=== PATIENT | male | born 2005 | race Caucasian/White ===

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

== ENCOUNTER 2023-04-13 10:25 | Inpatient (IN) ==
[2023-04-13 13:29] LABS: Urine Appearance Cloudy; Urine Bilirubin Negative (Negative); Urine Blood Negative (Negative); Urine Color Amber; Urine Glucose Negative (Negative); Urine Ketones Negative (Negative); Urine Nitrite Negative (Negative); Urine Protein Negative (Negative); Urine Specific Gravity 1.026 (1.002-1.030); Urine Urobilinogen Negative (Negative)
[2023-04-13 13:33] LABS: Hemoglobin 7.5 g/dL (13.2-16.3); Mean Corpuscular Hemoglobin 20.8 pg (27-33); Mean Corpuscular Hgb Conc 31.2 g/dL (31-36); Mean Corpuscular Volume 66.6 fL (80-97); Mean Platelet Volume 7.2 fL (7.5-11.2); Platelet Count 138 10^3/uL (150-450); Red Blood Count 3.61 10^6/uL (4.06-5.63); Red Cell Distribution Width 14.7 % (12-17); White Blood Count 11.7 10^3/uL (3.6-10.2)
[2023-04-13 14:25] LABS: Albumin 4.1 g/dL (3.2-5.2); Albumin/Globulin Ratio 1.3 (1-3); C Reactive Protein 3.47 mg/L (<8.01); Creatinine, Serum 0.66 mg/dL (0.67-1.17); Globulin 3.1 g/dL (2-4); Potassium 3.8 mmol/L (3.5-5.0); Total Bilirubin 0.4 mg/dL (0.2-1.0); Total Protein 7.2 g/dL (6.4-8.9); eGFR CKD-EPI 137.7 (>60)
[2023-04-13] MEDS ORDERED: Pantoprazole VIAL 40 MG VIAL IV ONE (14:35)
[2023-04-13] MEDS ORDERED: Pantoprazole 80 mg in NS BAG 80 MG/250 ML BAG IV SCH (15:00)
[2023-04-13] MEDS ORDERED: PEG 3000 GI LAVAGE 1 GALLON PO ONE ×2 (15:51→20:00)
[2023-04-13 16:00] LABS: ABS Eosinophils 0.9 10^3/uL (0.0-0.5); ABS Lymphocytes 2.7 10^3/uL (1.0-4.8); ABS Monocytes 0.8 10^3/uL (0.0-1.1); ABS Neutrophils 7.3 10^3/uL (1.5-7.6); ABS Nucleated RBC 0.01 10^3/ul; Hypochromasia 2+; Lymphocyte % 23.4 %; Microcytosis 3+
[2023-04-13 17:26] LABS: INR 1.12 (0.83-1.13)
[2023-04-13 18:06] LABS: % Iron Saturation 5 % (15-55); .Transferrin 316 mg/dL (203-362); Iron < 20 ug/dL (50-212); Total Iron Binding Capacity 442 mcg/dL (250-450); Unsaturated Iron Binding 422 ug/dL
[2023-04-13 18:24] LABS: Ferritin 3.4 ng/mL (24-336)
[2023-04-14 00:50] LABS: Hematocrit 24.4 % (38-53); Hemoglobin 7.7 g/dL (13.2-16.3)
[2023-04-14] MEDS: Pantoprazole 80 mg in NS BAG 80 MG/250 ML BAG IV SCH ×3 (01:24→21:34)
[2023-04-14] MEDS: Ondansetron ODT 4 mg TAB 4 MG TAB SL PRN ×2 (02:38→12:04)
[2023-04-14] MEDS ORDERED: PEG 3000 GI LAVAGE 1 GALLON PO ONE (06:00)
[2023-04-14 06:50] LABS: ABS Eosinophils 0.7 10^3/uL (0.0-0.5); ABS Lymphocytes 2.8 10^3/uL (1.0-4.8); ABS Monocytes 0.9 10^3/uL (0.0-1.1); ABS Neutrophils 8.8 10^3/uL (1.5-7.6); ABS Nucleated RBC 0.01 10^3/ul; Eosinophil % 5.3 %; Hematocrit 22.1 % (38-53); Hemoglobin 6.9 g/dL (13.2-16.3); Lymphocyte % 21.2 %; Mean Corpuscular Hemoglobin 20.3 pg (27-33); Mean Corpuscular Volume 65.7 fL (80-97); Mean Platelet Volume 7.1 fL (7.5-11.2); Nucleated Red Blood Cells % 0.1 %/100WBC (0.0-0.8); Platelet Count 132 10^3/uL (150-450); Red Blood Count 3.37 10^6/uL (4.06-5.63); Red Cell Distribution Width 14.5 % (12-17); White Blood Count 13.2 10^3/uL (3.6-10.2)
[2023-04-14] MEDS ORDERED: Magnesium Sulfate 2 gm BAG 2 GM/50 ML BAG IVPB ONE (07:33)
[2023-04-14] MEDS ORDERED: Iron Sucrose 200 MG in NS 0.9% 100 ml BAG 100 ML IVPB SCH (09:00)
[2023-04-14] MEDS ORDERED: Midazolam 10 mg/10 ml VIAL 1 mg/ml 10 ml VIAL (10 mg) ONE (14:33)
[2023-04-14] MEDS ORDERED: fentaNYL 100 mcg/2 ml 50 MCG/ML VIAL ONE (14:33)
[2023-04-14] MEDS: Ferric Gluconate IV 250 MG in NS 0.9% 250 ml 200 ML IVPB SCH (17:45)
[2023-04-14 18:31] LABS: Hemoglobin 7.9 g/dL (13.2-16.3)
[2023-04-14] MEDS: methylPREDNISolone SOD SUCC 40 mg/ml 1 ml VIAL IV SCH (20:16)
[2023-04-15 00:40] LABS: Hemoglobin 8.6 g/dL (13.2-16.3)
[2023-04-15 02:02] LABS: Hepatitis B Surface Ab Immune (Immune)
[2023-04-15 03:21] LABS: Hepatitis B Surface Antigen Nonreactive (Nonreactive)
[2023-04-15 03:26] LABS: Hepatitis B Core IgM Nonreactive (Nonreactive)
[2023-04-15 06:41] LABS: Calcium 9.3 mg/dL (8.6-10.3); Creatinine, Serum 0.83 mg/dL (0.67-1.17); Hematocrit 27.9 % (38-53); Hemoglobin 8.7 g/dL (13.2-16.3); Magnesium 2.1 mg/dL (1.9-2.7); Mean Corpuscular Hemoglobin 21.1 pg (27-33); Mean Corpuscular Hgb Conc 31.1 g/dL (31-36); Mean Corpuscular Volume 67.8 fL (80-97); Mean Platelet Volume 7.6 fL (7.5-11.2); Platelet Count 168 10^3/uL (150-450); Potassium 4.2 mmol/L (3.5-5.0); Red Blood Count 4.12 10^6/uL (4.06-5.63); Red Cell Distribution Width 15.7 % (12-17); White Blood Count 16.6 10^3/uL (3.6-10.2); eGFR CKD-EPI 128.5 (>60)
[2023-04-15] MEDS: methylPREDNISolone SOD SUCC 40 mg/ml 1 ml VIAL IV SCH (08:31)
[2023-04-15] MEDS: Ferric Gluconate IV 250 MG in NS 0.9% 250 ml 200 ML IVPB SCH (08:31)
[2023-04-15 14:02] LABS: Hemoglobin 7.5 g/dL (13.2-16.3)
[2023-04-16 00:26] LABS: Hematocrit 23.3 % (38-53); Hemoglobin 7.3 g/dL (13.2-16.3)
[2023-04-16 07:18] LABS: Hemoglobin 7.2 g/dL (13.2-16.3); Mean Corpuscular Hemoglobin 21.1 pg (27-33); Mean Corpuscular Hgb Conc 31.2 g/dL (31-36); Mean Corpuscular Volume 67.7 fL (80-97); Mean Platelet Volume 7.5 fL (7.5-11.2); Platelet Count 158 10^3/uL (150-450); Red Cell Distribution Width 15.5 % (12-17); White Blood Count 19.8 10^3/uL (3.6-10.2)
[2023-04-16 07:26] LABS: Calcium 8.8 mg/dL (8.6-10.3); Creatinine, Serum 0.75 mg/dL (0.67-1.17); Magnesium 1.9 mg/dL (1.9-2.7); Potassium 3.8 mmol/L (3.5-5.0); eGFR CKD-EPI 132.5 (>60)
[2023-04-16] MEDS: Ferric Gluconate IV 250 MG in NS 0.9% 250 ml 200 ML IVPB SCH (09:10)
[2023-04-16 11:00] VITALS: BP 113/68
[2023-04-16 13:37] LABS: Hematocrit 25.6 % (38-53); Hemoglobin 7.9 g/dL (13.2-16.3)
[2023-04-16 16:04] LABS: TB1 Ag minus Nil Result -0.03 IU/mL
[2023-04-16 16:08] LABS: QuantiferonTb Gold Plus Result Negative (Negative)
== END 2023-04-16 15:35 | disposition home or self-care (01) | DRG 386 ==
LOC: ED 10:25 → EDHOLD 15:43 → SSU 17:01
PROVIDERS: ADMIT Student in an Organized Health Care Education/Training Program; ATTEND Student in an Organized Health Care Education/Training Program

== ENCOUNTER 2024-03-07 16:44 | Inpatient (IN) ==
[2024-03-07 18:10] LABS: ABS Eosinophils 0.5 10^3/uL (0.0-0.5); ABS Lymphocytes 4.5 10^3/uL (1.0-4.8); ABS Monocytes 1.5 10^3/uL (0.0-1.1); ABS Neutrophils 5.6 10^3/uL (1.5-7.6); Hematocrit 33.6 % (38-53); Hemoglobin 10.6 g/dL (13.2-16.3); Lymphocyte % 37.3 %; Mean Corpuscular Hemoglobin 25.9 pg (27-33); Mean Corpuscular Hgb Conc 31.6 g/dL (31-36); Mean Platelet Volume 7.7 fL (7.5-11.2); Platelet Count 190 10^3/uL (150-450); Red Blood Count 4.09 10^6/uL (4.06-5.63); White Blood Count 12.2 10^3/uL (3.6-10.2)
[2024-03-07 18:11] LABS: Urine Appearance Clear; Urine Bilirubin Negative (Negative); Urine Blood Negative (Negative); Urine Color Yellow; Urine Glucose Negative (Negative); Urine Ketones Trace (Negative); Urine Nitrite Negative (Negative); Urine Protein 1+ (>=30 mg/dL) (Negative); Urine Specific Gravity 1.037 (1.002-1.030); Urine Urobilinogen 1+ (Negative); Urine pH 5.5 (5.0-8.0)
[2024-03-07 18:30] LABS: Urine Bacteria Absent /HPF (Absent); Urine Red Blood Cell 1+(3-5/hpf) /HPF (0-Trace); Urine Sperm Present /HPF (Absent); Urine White Blood Cell Trace(0-5/hpf) /HPF (0-Trace)
[2024-03-07] MEDS: Lactated Ringers 1000 ml BAG IV.FLUID IV ONE (18:41)
[2024-03-07 19:13] LABS: Albumin/Globulin Ratio 1.6 (1-3); C Reactive Protein 16.7 mg/L (<8.01); Calcium 9.3 mg/dL (8.6-10.3); Creatinine, Serum 0.78 mg/dL (0.67-1.17); Globulin 2.5 g/dL (2-4); Potassium 3.5 mmol/L (3.5-5.0); Total Bilirubin 0.3 mg/dL (0.2-1.0); Total Protein 6.5 g/dL (6.4-8.9); eGFR CKD-EPI 130.1 (>60)
[2024-03-07] MEDS ORDERED: Albuterol HFA INHALER 8 gm MDI INH PRN (19:55)
[2024-03-07] MEDS ORDERED: Iohexol 350 (CONTRAST) 500 ML MDV IV ONE (21:04)
[2024-03-07] MEDS: Enoxaparin 40 MG/0.4 ML SYR SUBCUT SCH (21:56)
[2024-03-08 05:49] LABS: ABS Eosinophils 0.5 10^3/uL (0.0-0.5); ABS Lymphocytes 4.4 10^3/uL (1.0-4.8); ABS Monocytes 1.1 10^3/uL (0.0-1.1); ABS Neutrophils 6.5 10^3/uL (1.5-7.6); ABS Nucleated RBC 0.01 10^3/ul; Hematocrit 28.1 % (38-53); Lymphocyte % 35.3 %; Mean Corpuscular Hemoglobin 26.2 pg (27-33); Mean Platelet Volume 7.6 fL (7.5-11.2); Nucleated Red Blood Cells % 0.1 %/100WBC (0.0-0.8); Platelet Count 160 10^3/uL (150-450); Red Blood Count 3.43 10^6/uL (4.06-5.63); Red Cell Distribution Width 21.6 % (12-17); White Blood Count 12.6 10^3/uL (3.6-10.2)
[2024-03-08 06:39] LABS: C Reactive Protein 12.76 mg/L (<8.01); Calcium 8.6 mg/dL (8.6-10.3); Creatinine, Serum 0.64 mg/dL (0.67-1.17); Potassium 3.8 mmol/L (3.5-5.0); eGFR CKD-EPI 138.1 (>60)
[2024-03-08] MEDS: PEG 3000 GI LAVAGE 1 GALLON PO ONE ×2 (08:55)
[2024-03-08] MEDS: Sodium Phosphate ADULT ENEMA 133 ML BTL PR ONE ×3 (08:55→13:58)
[2024-03-08] MEDS: Polyethylene Glycol 3350 BTL 238 GM BTL PO ONE ×2 (09:48→12:11)
[2024-03-08 10:39] LABS: ABS Basophils 0.1 10^3/uL (0.0-0.1); ABS Eosinophils 0.5 10^3/uL (0.0-0.5); ABS Lymphocytes 4.2 10^3/uL (1.0-4.8); ABS Monocytes 1.1 10^3/uL (0.0-1.1); ABS Neutrophils 7.5 10^3/uL (1.5-7.6); ABS Nucleated RBC 0.01 10^3/ul; Eosinophil % 3.8 %; Hemoglobin 9.3 g/dL (13.2-16.3); Lymphocyte % 31.3 %; Mean Corpuscular Hemoglobin 26.2 pg (27-33); Mean Corpuscular Volume 81.9 fL (80-97); Mean Platelet Volume 7.8 fL (7.5-11.2); Nucleated Red Blood Cells % 0.1 %/100WBC (0.0-0.8); Platelet Count 143 10^3/uL (150-450); Red Blood Count 3.54 10^6/uL (4.06-5.63); Red Cell Distribution Width 21.9 % (12-17); White Blood Count 13.3 10^3/uL (3.6-10.2)
[2024-03-08 10:48] LABS: Calcium 8.5 mg/dL (8.6-10.3); Creatinine, Serum 0.64 mg/dL (0.67-1.17); Potassium 3.5 mmol/L (3.5-5.0); eGFR CKD-EPI 138.1 (>60)
[2024-03-08] MEDS: Ondansetron 4 mg VIAL 2 MG/ML 2 ml VIAL IV PRN (12:51)
[2024-03-08] MEDS ORDERED: fentaNYL 100 mcg/2 ml 50 MCG/ML VIAL ONE (14:20)
[2024-03-08] MEDS ORDERED: Midazolam 10 mg/10 ml VIAL 1 mg/ml 10 ml VIAL (10 mg) ONE (14:20)
[2024-03-08] MEDS ORDERED: Acetaminophen IV 1 GM/100ML 1,000 MG/100 ML BAG IV PRN (14:49)
[2024-03-08] MEDS: methylPREDNISolone SOD SUCC 40 mg/ml 1 ml VIAL IV SCH (17:34)
[2024-03-08] MEDS: Iron Sucrose 200 MG in NS 0.9% 100 ml BAG 100 ML IVPB ONE (17:36)
[2024-03-08] MEDS ORDERED: methylPREDNISolone SOD SUCC 40 mg/ml 1 ml VIAL IV SCH (18:00)
[2024-03-08] MEDS ORDERED: Enoxaparin 40 MG/0.4 ML SYR SUBCUT SCH (18:00)
[2024-03-08] MEDS: methylPREDNISolone SOD SUCC 40 mg/ml 1 ml VIAL IV ONE (18:19)
[2024-03-08] MEDS: Enoxaparin 30 MG/0.3 ML SYR SUBCUT SCH (18:23)
[2024-03-09 08:09] LABS: ABS Lymphocytes 3.3 10^3/uL (1.0-4.8); ABS Monocytes 0.6 10^3/uL (0.0-1.1); ABS Neutrophils 12.6 10^3/uL (1.5-7.6); Hematocrit 30.3 % (38-53); Hemoglobin 9.8 g/dL (13.2-16.3); Lymphocyte % 19.8 %; Mean Corpuscular Hemoglobin 26.2 pg (27-33); Mean Corpuscular Hgb Conc 32.4 g/dL (31-36); Mean Platelet Volume 7.8 fL (7.5-11.2); Platelet Count 178 10^3/uL (150-450); Red Blood Count 3.74 10^6/uL (4.06-5.63); Red Cell Distribution Width 21.2 % (12-17); White Blood Count 16.5 10^3/uL (3.6-10.2)
[2024-03-09 08:30] LABS: Albumin 3.7 g/dL (3.2-5.2); Albumin/Globulin Ratio 1.5 (1-3); Calcium 9.3 mg/dL (8.6-10.3); Creatinine, Serum 0.62 mg/dL (0.67-1.17); Globulin 2.4 g/dL (2-4); Magnesium 1.8 mg/dL (1.9-2.7); Potassium 4.2 mmol/L (3.5-5.0); Total Bilirubin 0.3 mg/dL (0.2-1.0); Total Protein 6.1 g/dL (6.4-8.9); eGFR CKD-EPI 139.5 (>60)
[2024-03-09] MEDS: Ferric Gluconate IV 250 MG in NS 0.9% 250 ml 200 ML IVPB SCH (08:43)
[2024-03-09] MEDS: Magnesium Sulf 4 GM/100 ML IV 4,000 MG/100 ML BAG IVPB ONE (11:19)
[2024-03-09 14:09] VITALS: BP 123/65
[2024-03-09 14:33] LABS: Cytomegalovirus IgG Antibody Positive (Negative)
[2024-03-09] MEDS: methylPREDNISolone SOD SUCC 40 mg/ml 1 ml VIAL IV SCH (17:59)
[2024-03-10 14:49] LABS: EBV Capsid Ag IgG Ab Negative (Negative); EBV Capsid Ag IgM Ab Negative (Negative); Epstein-Barr Nuclear Antigen Negative (Negative)
[2024-03-10 21:01] LABS: Adenovirus F40/41 Negative (Negative); Astrovirus Negative (Negative); Cryptosporidium species Negative (Negative); Cyclospora cayetanensis Negative (Negative); Entamoeba histolytica Negative (Negative); Enteroaggregative E.coli(EAEC) Negative (Negative); Enteropathogenic Ecoli(EPEC) Negative (Negative); Enterotoxigenic Ecoli(ETEC) Negative (Negative); Norovirus GI/GII Positive (Negative); Plesiomonas shigelloides Negative (Negative); Salmonella species Negative (Negative); Sapovirus Negative (Negative); Shiga toxin producing E. coli Negative (Negative); Shigella/Enteroinvasive E.coli Negative (Negative); Specimen Source STOOL; Vibrio cholerae Negative (Negative); Yersinia species Negative (Negative)
[2024-03-12 15:52] LABS: Calprotectin >3000 mcg/g
== END 2024-03-09 20:27 | disposition short-term general hospital (02) | DRG 386 ==
LOC: ED 16:44 → EDHOLD 16:44 → SUATTDRO 19:08 → OBSVTOIN 19:08 → MED 03-08 08:50
PROVIDERS: ADMIT Internal Medicine; ATTEND Student in an Organized Health Care Education/Training Program

== ENCOUNTER 2024-03-21 17:30 | Observation (INO) ==
[2024-03-21] MEDS ORDERED: Albuterol HFA INHALER 8 gm MDI INH PRN (21:00)
[2024-03-21 21:24] LABS: Mean Corpuscular Hemoglobin 26.9 pg (27-33); Mean Corpuscular Hgb Conc 32.3 g/dL (31-36); Mean Corpuscular Volume 83.4 fL (80-97); Mean Platelet Volume 6.9 fL (7.5-11.2); Platelet Count 191 10^3/uL (150-450); Red Cell Distribution Width 21.8 % (12-17)
[2024-03-21 21:33] LABS: Albumin 3.1 g/dL (3.2-5.2); Albumin/Globulin Ratio 1.4 (1-3); C Reactive Protein 8.43 mg/L (<8.01); Calcium 8.1 mg/dL (8.6-10.3); Creatinine, Serum 0.85 mg/dL (0.67-1.17); Globulin 2.2 g/dL (2-4); Total Bilirubin 0.2 mg/dL (0.2-1.0); Total Protein 5.3 g/dL (6.4-8.9); eGFR CKD-EPI 126.8 (>60)
[2024-03-21 21:48] LABS: ABS Monocytes 0.9 10^3/uL (0.0-1.1); ABS Neutrophils 10.1 10^3/uL (1.5-7.6); ABS Nucleated RBC 0.02 10^3/ul; Hematocrit 21.4 % (38-53); Hemoglobin 6.9 g/dL (13.2-16.3); Lymphocyte % 15.3 %; Nucleated Red Blood Cells % 0.2 %/100WBC (0.0-0.8); Red Blood Count 2.57 10^6/uL (4.06-5.63)
[2024-03-21 21:51] LABS: Ferritin 21.3 ng/mL (24-336)
[2024-03-21] MEDS: Lactated Ringers 1000 ml BAG 1,000 ML IV ONE (22:33)
[2024-03-21] MEDS: Enoxaparin 40 MG/0.4 ML SYR SUBCUT SCH (22:33)
[2024-03-22] MEDS: Mesalamine RECTAL SUSP 4 GM/60 ML RECTAL.SUS PR SCH (00:39)
[2024-03-22 03:37] LABS: Urine Appearance Clear; Urine Bilirubin Negative (Negative); Urine Blood Negative (Negative); Urine Color Yellow; Urine Glucose Negative (Negative); Urine Ketones Negative (Negative); Urine Nitrite Negative (Negative); Urine Protein Trace (Negative); Urine Specific Gravity 1.026 (1.002-1.030); Urine Urobilinogen Negative (Negative)
[2024-03-22 06:14] LABS: C Reactive Protein 7.03 mg/L (<8.01); Calcium 7.9 mg/dL (8.6-10.3); Creatinine, Serum 0.71 mg/dL (0.67-1.17); Magnesium 1.6 mg/dL (1.9-2.7); Potassium 3.8 mmol/L (3.5-5.0); eGFR CKD-EPI 133.9 (>60)
[2024-03-22 08:26] LABS: ABS Lymphocytes 3.2 10^3/uL (1.0-4.8); ABS Monocytes 1.7 10^3/uL (0.0-1.1); ABS Neutrophils 11.3 10^3/uL (1.5-7.6); ABS Nucleated RBC 0.04 10^3/ul; Eosinophil % 0.1 %; Hematocrit 22.1 % (38-53); Hemoglobin 7.1 g/dL (13.2-16.3); Hypochromasia 1+; Mean Corpuscular Hemoglobin 26.6 pg (27-33); Mean Corpuscular Hgb Conc 32.2 g/dL (31-36); Mean Corpuscular Volume 82.8 fL (80-97); Mean Platelet Volume 6.8 fL (7.5-11.2); Nucleated Red Blood Cells % 0.3 %/100WBC (0.0-0.8); Platelet Count 181 10^3/uL (150-450); Red Blood Count 2.67 10^6/uL (4.06-5.63); Red Cell Distribution Width 20.8 % (12-17); White Blood Count 16.2 10^3/uL (3.6-10.2)
[2024-03-22] MEDS: Magnesium Sulfate 2 gm BAG 2 GM/50 ML BAG IVPB ONE (09:57)
[2024-03-22] MEDS: Sulfamethox/Trimethoprim DS TAB 800/160 mg PO SCH (10:02)
[2024-03-22 10:45] LABS: Hemoglobin 7.2 g/dL (13.2-16.3)
[2024-03-22] MEDS: Magnesium Sulfate IV 1GM/100ML 1 GM/100 ML BAG IV ONE (12:40)
[2024-03-22] MEDS ORDERED: Acetaminophen IV 1 GM/100ML 1,000 MG/100 ML BAG IV PRN (15:29)
[2024-03-22 16:18] LABS: Urine Appearance Clear; Urine Bilirubin Negative (Negative); Urine Blood Negative (Negative); Urine Color Colorless; Urine Glucose Negative (Negative); Urine Ketones Negative (Negative); Urine Nitrite Negative (Negative); Urine Protein Negative (Negative); Urine Urobilinogen Negative (Negative); Urine pH 5.5 (5.0-8.0)
[2024-03-22 17:19] VITALS: BP 126/68
[2024-03-22] MEDS ORDERED: Mesalamine RECTAL SUSP 4 GM/60 ML RECTAL.SUS PR SCH (21:00)
[2024-03-23 19:19] LABS: Adenovirus F40/41 Negative (Negative); Astrovirus Negative (Negative); Cryptosporidium species Negative (Negative); Cyclospora cayetanensis Negative (Negative); Entamoeba histolytica Negative (Negative); Enteroaggregative E.coli(EAEC) Negative (Negative); Enteropathogenic Ecoli(EPEC) Negative (Negative); Enterotoxigenic Ecoli(ETEC) Negative (Negative); Norovirus GI/GII Negative (Negative); Plesiomonas shigelloides Negative (Negative); Salmonella species Negative (Negative); Sapovirus Negative (Negative); Shiga toxin producing E. coli Negative (Negative); Shigella/Enteroinvasive E.coli Negative (Negative); Specimen Source STOOL; Vibrio cholerae Negative (Negative); Yersinia species Negative (Negative)
[2024-03-25 18:05] LABS: Calprotectin >3000 mcg/g
== END 2024-03-22 18:20 | disposition short-term general hospital (02) ==
LOC: MED 19:13 → SUATTDRO 19:13 → INTOOBSV 19:13
PROVIDERS: ADMIT Internal Medicine; ATTEND Internal Medicine